=== PATIENT | female | born 1950 | race Caucasian/White ===

== ENCOUNTER 2021-03-31 08:19 | Day surgery (SDC) | payer MEDICARE, SELFPAY ==
[2021-03-23 20:06] VITALS: BMI 33.4
--- NOTE | 2021-03-31 08:21 | HO.ANESPROP2 ---
[facility] Past Medical History Medical History (Updated 03/23/21 @ 20:03 by Destiny Cole RN) Ankle fracture, left Asthma GERD (gastroesophageal reflux disease) HTN (hypertension) Hypercholesteremia Surgical History Surgical History (Updated 03/23/21 @ 20:03 by Destiny Cole RN) History of colonoscopy History of hysterectomy History of tonsillectomy Social History Social History Are you a primary manager medicare marketing to a significant other at home: No Do you presently have visiting nurse or other home services: No Patient Tobacco Use Status: Never used Tobacco Use of substances other than those prescribed or required for medical reasons: No Are you DNR?: No Advance Directives: Yes Advance Directives Information Provided: Yes Advance Directives on File: No (patient will bring in) Advance Directives Date on File: 09/20/15 Recently lost weight without trying: No Nutrition Risks: No Nutritional Risk Meds Allergies Allergy/AdvReac Type Severity Reaction Status Date / Time ibuprofen [From Advil] Allergy Severe Difficulty Verified 03/23/21 20:05 Breathing aspirin Allergy Unknown Difficulty Verified 03/23/21 20:05 Breathing Active Medications: Current Medications Generic Name Dose Route Start Last Admin Trade Name Freq PRN Reason Stop Dose Admin Lactated Ringer's 1,000 mls @ 50 mls/hr 03/31/21 08:00 Lr IVCONT .Q20H [facility] Home Medications Medication Instructions Recorded Confirmed Last Taken Type albuterol 90 mcg/actuation aerosol 90 mcg INHALATION Q4-6H PRN 03/23/21 03/23/21 Unknown History inhaler budesonide 180 mcg/actuation 1 inh INHALATION DAILY 03/23/21 03/23/21 Unknown History breath activated powder inhaler (Pulmicort Flexhaler) cholecalciferol (vitamin D3) 25 25 mcg PO DAILY 03/23/21 03/23/21 Unknown History mcg (1,000 unit) capsule (Vitamin D3) famotidine 20 mg tablet (Pepcid AC 20 mg PO DAILY 03/23/21 03/23/21 Unknown History Maximum Strength) hydrochlorothiazide 25 mg tablet 25 mg PO DAILY 03/23/21 03/23/21 Unknown History lisinopril 30 mg tablet 30 mg PO DAILY 03/23/21 03/23/21 Unknown History loratadine 10 mg capsule 10 mg PO DAILY 03/23/21 03/23/21 Unknown History pravastatin 20 mg tablet 20 mg PO BEDTIME 03/23/21 03/23/21 Unknown History Exam Exam Date and Time: March 31, [id number] Height,Weight and Vital Signs: Height 5 ft 8 in Weight 99.79 kg Airway Mallampati Class: II TM Dist: >3cm Neck ROM: Full
--- NOTE | 2021-03-31 08:24 | HO.ANESPROP2 ---
[facility] [place] Past Medical History Medical History (Updated 03/23/21 @ 20:03 by Destiny Cole RN) Ankle fracture, left Asthma GERD (gastroesophageal reflux disease) HTN (hypertension) Hypercholesteremia Surgical History Surgical History (Updated 03/23/21 @ 20:03 by Destiny Cole RN) History of colonoscopy History of hysterectomy History of tonsillectomy Social History Social History Are you a primary physician assistant primary care to a significant other at home: No Do you presently have visiting nurse or other home services: No Patient Tobacco Use Status: Never used Tobacco Use of substances other than those prescribed or required for medical reasons: No Are you DNR?: No Advance Directives: Yes Advance Directives Information Provided: Yes Advance Directives on File: No (patient will bring in) Advance Directives Date on File: 09/20/15 Recently lost weight without trying: No Nutrition Risks: No Nutritional Risk Meds Allergies Allergy/AdvReac Type Severity Reaction Status Date / Time ibuprofen [From Advil] Allergy Severe Difficulty Verified 03/23/21 20:05 Breathing aspirin Allergy Unknown Difficulty Verified 03/23/21 20:05 Breathing Active Medications: Current Medications Generic Name Dose Route Start Last Admin Trade Name Freq PRN Reason Stop Dose Admin Lactated Ringer's 1,000 mls @ 50 mls/hr 03/31/21 08:00 Lr IVCONT .Q20H [facility] Lactated Ringer's 1,000 mls @ 100 mls/hr 03/31/21 08:30 Lr IVCONT .Q10H [facility] Home Medications Medication Instructions Recorded Confirmed Last Taken Type albuterol 90 mcg/actuation aerosol 90 mcg INHALATION Q4-6H PRN 03/23/21 03/23/21 Unknown History inhaler budesonide 180 mcg/actuation 1 inh INHALATION DAILY 03/23/21 03/23/21 Unknown History breath activated powder inhaler (Pulmicort Flexhaler) cholecalciferol (vitamin D3) 25 25 mcg PO DAILY 03/23/21 03/23/21 Unknown History mcg (1,000 unit) capsule (Vitamin D3) famotidine 20 mg tablet (Pepcid AC 20 mg PO DAILY 03/23/21 03/23/21 Unknown History Maximum Strength) hydrochlorothiazide 25 mg tablet 25 mg PO DAILY 03/23/21 03/23/21 Unknown History lisinopril 30 mg tablet 30 mg PO DAILY 03/23/21 03/23/21 Unknown History loratadine 10 mg capsule 10 mg PO DAILY 03/23/21 03/23/21 Unknown History pravastatin 20 mg tablet 20 mg PO BEDTIME 03/23/21 03/23/21 Unknown History Exam Exam Date and Time: March 31, [id number] Height,Weight and Vital Signs: Height 5 ft 8 in Weight 99.79 kg Airway Mallampati Class: III TM Dist: >3cm Neck ROM: Full Loose/Missing/Broken Teeth: Yes, Upper and Lower
[2021-03-31 08:31] VITALS: BP 127/72; PULSE 76; RESP 18; TEMP 36.2; O2SAT 96
[2021-03-31] MEDS: Lactated Ringers 1,000 ML 100 ML IVCONT (08:42)
--- NOTE | 2021-03-31 08:50 | MHC.SHP ---
Pre-Procedural Eval Section A Date of Service: 03/31/21 The patient is an INPATIENT: No Changes since office visit: No Cold of Flu in the past 2 weeks, No New Medical Problems, No Changes in Medication and No Patient answered all questions The History & Physical has been completed within 30 days and I have reviewed it.: Yes Section B Chief Complaint: acute ischemia of intestine Allergies: Allergies Allergy/AdvReac Type Severity Reaction Status Date / Time ibuprofen [From Advil] Allergy Severe Difficulty Verified 03/31/21 08:33 Breathing aspirin Allergy Unknown Difficulty Verified 03/31/21 08:33 Breathing Plan I have reviewed the history and physical and performed a pertinent physical examination on my patient. No changes have occurred unless specified.
--- NOTE | 2021-03-31 09:09 | PM.OP ---
Brief Operative Note Date of Service: 03/31/21 Pre-op diagnosis: ischemic olitis Post-op diagnosis: same Procedure: colonoscopy Surgeon: Roderick De Oliveira Anesthesia: MAC Was an Equine Intern used for this Procedure?: No Estimated blood loss (mL): 2 Condition: stable Disposition: PACU
[2021-03-31 09:15] VITALS: BP 93/45; PULSE 67; RESP 16; TEMP 36.3; O2SAT 94
[2021-03-31 09:27] VITALS: BP 104/62; PULSE 63; RESP 16; TEMP 36.1; O2SAT 95
--- NOTE | 2021-03-31 09:55 | OP_ITS ---
SURGEON: Roderick De Oliveira MD INDICATIONS: Ischemic colitis. PREOPERATIVE DIAGNOSIS: POSTOPERATIVE DIAGNOSIS: PROCEDURE PERFORMED: Colonoscopy to the terminal ileum with biopsy. ESTIMATED BLOOD LOSS: COMPLICATIONS: ANESTHESIA: ASSISTANTS: SPECIMENS: MEDICATIONS: Monitored anesthesia care. DESCRIPTION OF PROCEDURE: History and physical performed. The risks and benefits of the procedure were explained to the patient and informed consent was obtained. The patient was placed in left lateral decubitus position. A digital rectal exam was performed and was found to be normal. The Olympus pediatric video colonoscope was introduced into the rectum and advanced to the cecum without difficulty. The cecum was identified by transillumination, palpation, and identification of ileocecal valve. Examination was performed and the scope was removed. She tolerated the procedure well and was taken to recovery area in stable condition. FINDINGS: The terminal ileum was normal. The visualized colonic mucosa was normal. The quality of the prep was good. There was no evidence of active colitis. Biopsies were obtained from the sigmoid. There was mild sigmoid diverticular disease. Retroflexed examination showed internal hemorrhoids. No polyps were identified. IMPRESSION: Normal colonoscopy. RECOMMENDATIONS: 1. Follow up the biopsy results. 2. Repeat colonoscopy is recommended in 7 to 10 years because of prior history. MD NANCI Thompson/LISA / [id number]
== END 2021-03-31 09:48 | disposition home or self-care (01) ==
PROVIDERS: PCP Internal Medicine Geriatric Medicine; Visit Provider Internal Medicine Gastroenterology
PROC: 0DJD8ZZ Inspection of Lower Intestinal Tract, Via Natural or Artificial Opening Endoscopic (ICD-10-PCS; CPT 45378; principal; 2021-03-31 10:10)
DX: K55.9 Vascular disorder of intestine, unspecified (principal); Z86.010 Personal history of colon polyps; K57.30 Diverticulosis of large intestine without perforation or abscess without bleeding; K64.8 Other hemorrhoids; K21.9 Gastro-esophageal reflux disease without esophagitis; I12.9 Hypertensive chronic kidney disease with stage 1 through stage 4 chronic kidney disease, or unspecified chronic kidney disease; N18.30 Chronic kidney disease, stage 3 unspecified; N39.3 Stress incontinence (female) (male); J45.909 Unspecified asthma, uncomplicated; Z79.899 Other long term (current) drug therapy; Z88.8 Allergy status to other drugs, medicaments and biological substances
CPT/HCPCS: 45380; 88305